=== PATIENT | female | born 1960 | race Caucasian/White ===

== ENCOUNTER 2018-08-12 17:48 | Emergency (ER) | payer MEDICAID ==
[2018-08-12] MEDS ORDERED: predniSONE 20 MG Tab ONE (18:40)
[2018-08-12] MEDS: predniSONE 1 MG Tab PO ONE (18:55)
--- NOTE | 2018-08-12 18:55 | EDM.PDOC ---
ED HPI GENERAL MEDICAL PROBLEM - General Chief Complaint: General Stated Complaint: NEED PREDNISONE FOR EYE Time Seen by Provider: 08/12/18 18:48 Source of Information: Reports: Patient, RN, Other (Cable Installation Technician, [facility] ) History Limitations: Reports: No Limitations - History of Present Illness INITIAL COMMENTS - FREE TEXT/NARRATIVE: 57 yr female presents with left eye pain and numbness to left arm and tingling to left hand. States she is taking Ibuprofen for pain. States she is having jaw pain and is hard to eat. She is eating soft foods. 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 Cable Installation Technician states giant cell arteritis is diagnosis. States MRI negative. States her sed rate was 67 and previously was 23. States her PLT was 488 and C reactive prednisone was 125.2 today. Pt has an appointment at [facility] on . - Related Data Allergies Allergy/AdvReac Type Severity Reaction Status Date / Time succinylcholine Allergy Other Verified 08/12/18 18:40 ED ROS GENERAL - Review of Systems Review Of Systems: See Below Constitutional: Reports: No Symptoms HEENT: Reports: Eye Pain, Other (pain to jaw) Respiratory: Reports: No Symptoms, Other (history of COPD) Cardiovascular: Reports: No Symptoms Musculoskeletal: Reports: Other (tingling/numbness to right forearm and hand.) Skin: Reports: No Symptoms Neurological: Reports: Headache, Numbness ED EXAM, GENERAL - Physical Exam Exam: See Below Exam Limited By: No Limitations General Appearance: Alert, No Apparent Distress Eye Exam: Bilateral Eye: Vision Changes (poor vision, eyes dilated from eye exam today.) Ears: Hearing Grossly Normal Throat/Mouth: No Airway Compromise Neck: Supple, Non-Tender Respiratory/Chest: No Respiratory Distress, Normal Breath Sounds Cardiovascular: Regular Rate, Rhythm Neurological: Alert, Oriented, Normal Cognition Skin Exam: Warm, Dry, Normal Color Course - Re-Assessments/Exams Free Text/Narrative Re-Assessment/Exam: 08/12/18 19:00 Discussed pt care with Dr[address] Silver, furnace tender. Will give pt Prednisone tonight in ER and Rx for dose tomorrow, for possible temporal arteritis with diminished vision and pain to eye, and jaw. Recommend taking after eating. Pt will follow-up at [facility] on for her vision. Pt states understanding and will be discharged to care of . Departure - Departure Time of Disposition: 19:08 Disposition: Home, Self-Care 01 Condition: Good Clinical Impression: Decreased vision, Pain, eye, right Clinical Impression: (Ruled Out): Giant cell arteritis - Discharge Information *PRESCRIPTION DRUG MONITORING PROGRAM REVIEWED*: Not Applicable *COPY OF PRESCRIPTION DRUG MONITORING REPORT IN PATIENT [facility]: Not Applicable
== END 2018-08-12 19:06 | disposition home or self-care (01) ==
LOC: LB.ED 17:48
DX: H54.7 Unspecified visual loss (principal); H57.11 Ocular pain, right eye; Z88.8 Allergy status to other drugs, medicaments and biological substances
CPT/HCPCS: 99283; A9270-GY